=== PATIENT | male | born 1945 | race Two or more races ===

== ENCOUNTER 2021-06-11 15:08 | Emergency (ER) | payer OTHER ==
[~2021-06-11] VITALS: Ht 170.2 cm; Wt 74.8 kg
[2021-06-11] MEDS ORDERED: CARVEDILOL ER40 MG (15:20)
[2021-06-11] MEDS ORDERED: CRESTOR10 MG (15:20)
[2021-06-11] MEDS ORDERED: CANDESARTAN CILE8 MG (15:20)
[2021-06-11] MEDS ORDERED: CILOSTAZOL50 MG (15:21)
[2021-06-11] MEDS ORDERED: OMEPRAZOLE MAGN20 MG (15:21)
[2021-06-11] MEDS ORDERED: CHILDREN'S ASPI81 MG (15:21)
[2021-06-11] MEDS ORDERED: ARICEPT5 MG (15:21)
[2021-06-11] MEDS ORDERED: TRAYENTA (15:22)
[2021-06-11] MEDS ORDERED: NEURONTIN300 MG PO (16:33)
[2021-06-11] MEDS ORDERED: CAPSAICIN42.5 GM TOP (16:33)
== END 2021-06-11 16:40 | disposition home or self-care (01) ==
LOC: ER 15:08
DX: B02.29 Other postherpetic nervous system involvement (principal)